=== PATIENT | female | born 1955 | race Caucasian/White ===

== ENCOUNTER 2017-10-03 09:10 | Outpatient (CLI) | payer BC ==
--- NOTE | 2017-10-03 11:13 | ULT ---
ULTRASOUND ABDOMEN LIMITED: (RIGHT UPPER QUADRANT) DATE: 10-03-17 HISTORY: 62-year-old female with right upper quadrant and epigastric abdominal pain. FINDINGS: Gallbladder: Normal wall thickness. Dependent layer of material which probably represents clumps of sludge. No definite gallstone identified. No sonographic Kincaid sign or pericholecystic fluid. Common duct: 3 mm Liver: Normal sonographic appearance. Pancreas: No sonographic abnormality identified. Right kidney: No hydronephrosis. IMPRESSION: Gallbladder sludge. ALY [place] POS: DIANE
== END 2017-10-03 09:11 | disposition home or self-care (01) ==
LOC: ULT 09:10
PROVIDERS: ATTEND Internal Medicine Gastroenterology
DX: R10.13 Epigastric pain (principal); K82.8 Other specified diseases of gallbladder
CPT/HCPCS: 76705

== ENCOUNTER 2018-06-29 08:57 | Outpatient (CLI) | payer BC ==
--- NOTE | 2018-06-29 10:39 | ULT ---
RIGHT UPPER QUADRANT ULTRASOUND: INDICATION: History of celiac disease. COMPARISON: Prior right upper quadrant ultrasound dated 10/03/2017. FINDINGS: No focal hepatic lesion is evident. Previously seen layered echogenicities within the gallbladder ar e no longer demonstrated. No sonographic Kincaid's sign is reported. Common bile duct measures 4 mm. The visualized aspects of the pancreas and right kidney are within normal limits. The right kidney measured 10.9 cm in length. The liver measured 15.1 cm in length. IMPRESSION: No acute sonographic abnormality within the right upper quadrant of the abdomen. Previously seen gal lbladder sludge has resolved. POS: T[facility]
== END 2018-06-29 08:58 | disposition home or self-care (01) ==
LOC: SCSULT 08:57
PROVIDERS: ATTEND Internal Medicine Gastroenterology
DX: K90.0 Celiac disease (principal); R93.89 Abnormal findings on diagnostic imaging of other specified body structures
CPT/HCPCS: 76705

== ENCOUNTER 2018-07-01 06:26 | Emergency (ER) | payer BC ==
[2018-07-01 07:41] LABS: #Monocytes 0.5 thou/uL (0.11-0.59); %Basophils 0.6 % (0.0-1.0); %Eosinophils 0.5 % (0.0-10.0); %Lymphocytes 15.4 % (21.0-51.0); %Monocytes 7.4 % (0.0-10.0); %Neutrophils 76.1 % (42.0-75.0); Hemoglobin 13.8 g/dL (12.0-16.0); Mean Corpuscular Hemoglobin 29.4 pg (27.0-31.0); Mean Corpuscular Volume 89.2 fL (78.0-98.0); Mean Platelet Volume 7.6 fL (7.4-10.4); Platelet Count 246 thou/uL (130-400); RBC Distribution Width 11.8 % (11.5-14.5); Red Blood Cell (RBC) Count 4.69 mill/uL (4.20-5.40); White Blood Cell (WBC) Count 6.6 thou/uL (4.8-10.8)
[2018-07-01 07:45] LABS: ALT (SGPT) 20 U/L (8-55); AST (SGOT) 28 U/L (5-34); Alkaline Phosphatase 68 U/L (40-150); Anion Gap 17 mmol/L (10-20); BUN (Urea Nitrogen) 20 mg/dL (9.8-20.1); Bilirubin, Total 0.5 mg/dL (0.2-1.2); Calc. Creatinine Clearance 0 mL/min (70-130); Calcium 10.1 mg/dL (7.8-10.44); Carbon Dioxide 23 mmol/L (23-31); Chloride 104 mmol/L (98-107); Estimated GFR-MDRD 55; Globulin 3.8 g/dL (2.4-3.5); Glucose 123 mg/dL (80-115); Potassium 4.1 mmol/L (3.5-5.1); Protein, Total 8.8 g/dL (6.0-8.3); Sodium 140 mmol/L (136-145)
[2018-07-01] MEDS ORDERED: Ibuprofen 800 MG TAB ONE (08:38)
== END 2018-07-01 09:43 | disposition home or self-care (01) ==
LOC: ERS 06:26
DX: R51 Headache (principal); R10.9 Unspecified abdominal pain; I10 Essential (primary) hypertension; F41.9 Anxiety disorder, unspecified; Z79.899 Other long term (current) drug therapy
CPT/HCPCS: 80053; 84443; 85025; 93005; 96360

== ENCOUNTER 2020-08-11 07:49 | Outpatient (CLI) | payer MEDICARE ==
[2020-08-11 22:15] LABS: SARS-CoV-2 PCR by NAA Not Detected (NotDetected)
== END 2020-08-11 07:50 | disposition home or self-care (01) ==
LOC: LABBT 07:49
PROVIDERS: ATTEND Specialist
DX: Z01.818 Encounter for other preprocedural examination (principal); Z20.822 Contact with and (suspected) exposure to COVID-19; C64.2 Malignant neoplasm of left kidney, except renal pelvis; R91.8 Other nonspecific abnormal finding of lung field
CPT/HCPCS: 71260; 93005; U0003; U0005; 87635; 93010; Q9967

== ENCOUNTER 2020-08-11 09:03 | Outpatient (CLI) | payer MEDICARE ==
[2020-08-11] MEDS ORDERED: Iopamidol 370 76% 100 ML VIAL ONE (14:00)
== END 2020-08-11 09:04 | disposition home or self-care (01) ==
LOC: CT 09:03
PROVIDERS: ATTEND Internal Medicine Hematology & Oncology
DX: C64.2 Malignant neoplasm of left kidney, except renal pelvis (principal); R91.8 Other nonspecific abnormal finding of lung field
CPT/HCPCS: 71260

== ENCOUNTER 2020-08-16 06:34 | Day surgery (SDC) | payer MEDICARE ==
[2020-08-11 13:58] VITALS: BMI 23.8
[2020-08-16] MEDS ORDERED: Ketorolac Tromethamine 30 MG/ML VIAL ONE (07:01)
[2020-08-16] MEDS ORDERED: Acetaminophen 500 MG TAB ONE (07:01)
[2020-08-16] MEDS ORDERED: PROPOFOL 200 MG/20 ML VIAL ONE (08:55)
[2020-08-16] MEDS ORDERED: Bupivacaine PF 0.5% 30 ML VIAL ONE (09:49)
[2020-08-16] MEDS ORDERED: Midazolam HCl 2 mg/2 ml Vial ONE (09:52)
[2020-08-16] MEDS ORDERED: Fentanyl 100 MCG/2 ML VIAL ONE (09:57)
[2020-08-16] MEDS ORDERED: Propofol 500 MG/50 ML VIAL ONE (09:58)
[2020-08-16] MEDS ORDERED: Ketamine 50 MG/ML (10ML VIAL) ONE (09:58)
[2020-08-16] MEDS ORDERED: Lidocaine 2% PF 5 ML VIAL ONE (10:12)
--- NOTE | 2020-08-16 11:07 | RAD ---
Exam: Chest one view HISTORY:Status post Mediport catheter placement Comparison: None FINDINGS: Cardiac silhouette: Normal Aorta: Unremarkable Pulmonary vessels: Normal Costophrenic angles: Clear LUNGS: No masses or consolidation. Lines and tubes: Right-sided Mediport catheter terminating over the expected region of the superior v bartolo cava Pneumothorax: None Osseous abnormalities: None IMPRESSION: Right-sided Mediport catheter. No pneumothorax.
--- NOTE | 2020-08-16 11:34 | OP ---
DATE OF PROCEDURE: 08/16/2020 PREOPERATIVE DIAGNOSIS: Left clear cell renal carcinoma. POSTOPERATIVE DIAGNOSIS: Left clear cell renal carcinoma. PROCEDURE PERFORMED: Right subclavian vein low-profile MediPort, PowerPort. ANESTHESIA: TIVA and local with 0.5% Marcaine 30 mL, mixed with 1% Xylocaine with epinephrine 20 mL. Fluoroscopy used. DESCRIPTION OF PROCEDURE: The patient was taken to the operating room where under intravenous sedation, neck and chest were prepared with ChloraPrep and draped in routine fashion. Local anesthetic infiltrated in the skin and subcutaneous tissue about the operative site. Trocar cannula introduced in the infraclavicular right subclavian and cannulating the right subclavian vein, threading the J-wire, removing the trocar catheter. Skin site enlarged sharply and subcutaneous pocket created with blunt and sharp dissection, gaining hemostasis with cautery. Dilator and Peel-Away sheath were placed over the J-wire into superior vena cava, and dilator and J-wire were removed, catheter placed with Peel-Away sheath. Peel-Away sheath removed. Fluoroscopically, catheter tip placed in optimal position in the superior vena cava and catheter tailored to length, connected to the MediPort, placed in subcutaneous pocket, secured with 2 interrupted sutures of 3-0 Prolene. Subcutaneous tissue was approximated with 3-0 Monocryl, skin with subdermal 4-0 Monocryl, and Mcdonough glue applied. MediPort accessed with a Gutierrez needle, aspirating blood, flushing with heparinized saline solution. Final fluoroscopic images revealed good line and port placement. Job ID: [id number]
== END 2020-08-16 11:35 | disposition home or self-care (01) ==
LOC: SDC 06:34
PROVIDERS: ATTEND Specialist
PROC: 02HV33Z Insertion of Infusion Device into Superior Vena Cava, Percutaneous Approach (ICD-10-PCS; principal; 2020-08-16)
DX: C64.2 Malignant neoplasm of left kidney, except renal pelvis (principal); K90.0 Celiac disease; E07.9 Disorder of thyroid, unspecified; I10 Essential (primary) hypertension; F41.9 Anxiety disorder, unspecified; Z79.899 Other long term (current) drug therapy
CPT/HCPCS: 71045; C1788; J0690; J1642; J1885; J2001; J2250; J2704; J3010; S0020

== ENCOUNTER 2020-11-07 08:22 | Outpatient (CLI) | payer MEDICARE | END 2020-11-07 08:23 | disposition home or self-care (01) | LOC: BICCT 08:22 | PROVIDERS: ATTEND Internal Medicine Hematology & Oncology | DX: C64.2 Malignant neoplasm of left kidney, except renal pelvis (principal); R91.1 Solitary pulmonary nodule; N28.89 Other specified disorders of kidney and ureter; R91.8 Other nonspecific abnormal finding of lung field | CPT/HCPCS: 71260; 74177 ==

== ENCOUNTER 2021-01-13 04:45 | Emergency (ER) | payer MEDICARE ==
[2021-01-13] MEDS ORDERED: diphenhydrAMINE 50 MG/ML VIAL ONE (06:51)
[2021-01-13] MEDS ORDERED: Metoclopramide 10 MG/10 ML UDCUP ONE ×2 (06:51→06:52)
[2021-01-13] MEDS ORDERED: Ondansetron PF 4 MG/2 ML Vial ONE (06:51)
[2021-01-13] MEDS ORDERED: Metoclopramide HCl 10 MG/2 ML VIAL ONE (06:52)
[2021-01-13] MEDS ORDERED: Ketorolac Tromethamine 30 MG/ML VIAL ONE (08:02)
[2021-01-13] MEDS ORDERED: methylPREDNISolone Sod Succ/PF 125 MG/2 ML VIAL ONE (08:02)
[2021-01-13] MEDS ORDERED: Lorazepam 2 MG/ML VIAL ONE (08:02)
== END 2021-01-13 09:03 | disposition home or self-care (01) ==
LOC: ERS 04:45
DX: R51.9 Headache, unspecified (principal); K90.0 Celiac disease; I10 Essential (primary) hypertension; Z85.528 Personal history of other malignant neoplasm of kidney; Z79.899 Other long term (current) drug therapy
CPT/HCPCS: 70450; 96365; 96375; J1200; J1885; J2060; J2405; J2765; J2930

== ENCOUNTER 2021-05-01 09:15 | Outpatient (CLI) | payer MEDICARE | END 2021-05-01 09:16 | disposition home or self-care (01) | LOC: CT 09:15 | PROVIDERS: ATTEND Internal Medicine Hematology & Oncology | DX: C64.2 Malignant neoplasm of left kidney, except renal pelvis (principal); R91.8 Other nonspecific abnormal finding of lung field | CPT/HCPCS: 71260; 74177; 78306; 82565; A9503 ==

== ENCOUNTER 2021-08-02 08:25 | Outpatient (CLI) | payer MEDICARE | END 2021-08-02 08:26 | disposition home or self-care (01) | LOC: CT 08:25 | PROVIDERS: ATTEND Internal Medicine Hematology & Oncology | DX: C64.2 Malignant neoplasm of left kidney, except renal pelvis (principal); N28.89 Other specified disorders of kidney and ureter; R91.8 Other nonspecific abnormal finding of lung field; R59.0 Localized enlarged lymph nodes; E27.8 Other specified disorders of adrenal gland | CPT/HCPCS: 71260; 74177; 78306; 82565; A9503 ==

== ENCOUNTER 2022-07-23 08:16 | Outpatient (CLI) | payer MEDICARE ==
[~2022-07-23 08:16] MED LIST: Iopamidol 370 76% 100 ML VIAL ONE
== END 2022-07-23 08:17 | disposition home or self-care (01) ==
LOC: CT 08:16
PROVIDERS: ATTEND Internal Medicine Hematology & Oncology
DX: C64.2 Malignant neoplasm of left kidney, except renal pelvis (principal); N28.9 Disorder of kidney and ureter, unspecified; R59.0 Localized enlarged lymph nodes; R91.8 Other nonspecific abnormal finding of lung field
CPT/HCPCS: 71260; 74177; Q9967

== ENCOUNTER 2022-10-15 08:40 | Outpatient (CLI) | payer MEDICARE ==
[2022-10-15] MEDS ORDERED: Iopamidol-370 76% 500 ML MDV (1 ML CHARGE) ONE (09:40)
== END 2022-10-15 08:41 | disposition home or self-care (01) ==
LOC: NM 08:40
PROVIDERS: ATTEND Internal Medicine Hematology & Oncology
DX: C64.2 Malignant neoplasm of left kidney, except renal pelvis (principal); R91.8 Other nonspecific abnormal finding of lung field; N28.89 Other specified disorders of kidney and ureter
CPT/HCPCS: 71260; 74177; 78306; 82565; A9503; Q9967

== ENCOUNTER 2023-06-20 07:55 | Outpatient (CLI) | payer MEDICARE ==
[2023-06-20] MEDS ORDERED: Iopamidol 370 76% 100 ML VIAL ONE (13:35)
== END 2023-06-20 07:56 | disposition home or self-care (01) ==
LOC: CT 07:55
PROVIDERS: ATTEND Internal Medicine Hematology & Oncology
DX: C64.2 Malignant neoplasm of left kidney, except renal pelvis (principal); N28.89 Other specified disorders of kidney and ureter; N28.0 Ischemia and infarction of kidney; I70.0 Atherosclerosis of aorta; D18.09 Hemangioma of other sites; R91.8 Other nonspecific abnormal finding of lung field
CPT/HCPCS: 71260; 74177; 78306; A9503; Q9967

== ENCOUNTER 2024-03-02 08:26 | Outpatient (CLI) | payer MEDICARE ==
[2024-03-02] MEDS ORDERED: Iopamidol 370 76% 100 ML VIAL ONE (13:03)
== END 2024-03-02 08:27 | disposition home or self-care (01) ==
LOC: CT 08:26
PROVIDERS: ATTEND Internal Medicine Hematology & Oncology
DX: C64.2 Malignant neoplasm of left kidney, except renal pelvis (principal); D51.3 Other dietary vitamin B12 deficiency anemia; C78.7 Secondary malignant neoplasm of liver and intrahepatic bile duct; C78.00 Secondary malignant neoplasm of unspecified lung; N28.89 Other specified disorders of kidney and ureter; R59.0 Localized enlarged lymph nodes; M47.816 Spondylosis without myelopathy or radiculopathy, lumbar region; M51.26 Other intervertebral disc displacement, lumbar region; E04.1 Nontoxic single thyroid nodule; J98.4 Other disorders of lung; M47.814 Spondylosis without myelopathy or radiculopathy, thoracic region; E27.8 Other specified disorders of adrenal gland; I70.0 Atherosclerosis of aorta; M48.061 Spinal stenosis, lumbar region without neurogenic claudication; K86.89 Other specified diseases of pancreas; M51.34 Other intervertebral disc degeneration, thoracic region; G95.89 Other specified diseases of spinal cord; D73.89 Other diseases of spleen
CPT/HCPCS: 71260; 74177; 78306; A9503; J1642; Q9967

== ENCOUNTER 2024-06-22 07:29 | Outpatient (CLI) | payer MEDICARE | END 2024-06-22 07:30 | disposition home or self-care (01) | LOC: CT 07:29 | PROVIDERS: ATTEND Internal Medicine Hematology & Oncology | DX: C64.2 Malignant neoplasm of left kidney, except renal pelvis (principal); N28.89 Other specified disorders of kidney and ureter; R59.9 Enlarged lymph nodes, unspecified; R91.8 Other nonspecific abnormal finding of lung field; J98.4 Other disorders of lung | CPT/HCPCS: 71260; 74177; J1642 ==

== ENCOUNTER 2024-08-26 16:14 | Outpatient (CLI) | payer MEDICARE | END 2024-08-26 16:15 | disposition home or self-care (01) | LOC: BICRAD 16:14 | PROVIDERS: ATTEND Internal Medicine Gastroenterology | DX: C64.9 Malignant neoplasm of unspecified kidney, except renal pelvis (principal); K90.0 Celiac disease; R19.7 Diarrhea, unspecified; N28.89 Other specified disorders of kidney and ureter | CPT/HCPCS: 74019 ==

== ENCOUNTER 2025-05-24 08:53 | Outpatient (CLI) | payer MEDICARE ==
[2025-05-24 09:43] LABS: Estimated GFR - POC 61.0
[2025-05-24] MEDS ORDERED: Iopamidol 370 76% 100 ML VIAL ONE (11:48)
== END 2025-05-24 08:54 | disposition home or self-care (01) ==
LOC: CT 08:53
PROVIDERS: ATTEND Internal Medicine Hematology & Oncology
DX: C64.2 Malignant neoplasm of left kidney, except renal pelvis (principal); D51.3 Other dietary vitamin B12 deficiency anemia; R91.8 Other nonspecific abnormal finding of lung field; R93.2 Abnormal findings on diagnostic imaging of liver and biliary tract
CPT/HCPCS: 36000; 71260; 74177; 78306; 82565 ×2; A9503; J1642